=== PATIENT | male | born 1990 | race Caucasian/White ===

== ENCOUNTER 2018-11-05 16:25 | Emergency (ER) | payer SELFPAY ==
[~2018-11-05] VITALS: Ht 177.8 cm; Wt 83.9 kg
[2018-11-05] MEDS ORDERED: PROPOFOL 10 MG/ML (20ML) VIAL. IV ONE (16:45)
[2018-11-05] MEDS ORDERED: IV NORMAL SALINE 1000ML BAG 1,000 ML IV ONE (16:45)
[2018-11-05] MEDS ORDERED: fentaNYL PF VIAL 100 MCG/2 ML VIAL IV ONE (16:45)
[2018-11-05] MEDS ORDERED: ONDANSETRON PF 4 MG/2 ML VIAL. IV ONE (16:45)
--- NOTE | 2018-11-05 16:45 | PHYS DOC ---
Adult General Chief Complaint Chief Complaint: SHOULDER INJURY HPI HPI Patient is a 28 year old male who presents with was at work and states that he pulled a piece of plywood up over his shoulder when he felt a pop in his right shoulder. Patient now has lack of range of motion in the shoulder and in extreme pain. Patient rates his pain a 10 out of 10. Patient states the pain is mechanical nauseated and slightly lightheaded. Patient last ate at 10 AM this morning. (JOE PARK APRN) Review of Systems Review of Systems Constitutional: Denies fever or chills [] Respiratory: Denies cough or shortness of breath [] Musculoskeletal: Right shoulder pain. Denies back pain or joint pain [] Integument: Denies rash or skin lesions [] Neurologic: Denies headache, focal weakness or sensory changes [] All other systems were reviewed and found to be within normal limits, except as documented in this note. (JOE PARK APRN) Current Medications Current Medications Current Medications Medications (Trade) Dose Ordered Sig/[facility] Start Time Stop Time Status Last Admin Dose Admin Fentanyl Citrate (Fentanyl 2ml Vial) 50 mcg 1X ONCE 11/05/18 16:45 11/05/18 16:49 DC 11/05/18 17:13 50 MCG Ondansetron HCl (Zofran) 4 mg 1X ONCE 11/05/18 16:45 11/05/18 16:49 DC 11/05/18 17:03 4 MG Propofol (Diprivan) 200 mg 1X ONCE 11/05/18 16:45 11/05/18 16:49 DC 11/05/18 17:03 200 MG Sodium Chloride 1,000 ml @ 1,000 mls/hr 1X ONCE 11/05/18 16:45 11/05/18 17:44 DC 11/05/18 17:03 1,000 MLS/HR (ILSA SCHROEDER DO) Allergies Allergies Allergies Coded Allergies Type Severity Reaction Last Updated Verified No Known Drug Allergies 11/05/18 No (ILSA SCHROEDER DO) Physical Exam Physical Exam Constitutional: Well developed, well nourished, no acute distress, non-toxic appearance. [] Skin: Warm, dry, no erythema, no rash. [] Extremities: Right shoulder tenderness, no cyanosis, no clubbing, Right shoulder deformity, Right shoulder ROM not intact, no edema. [] Neurologic: Alert and oriented X 3, normal motor function, normal sensory function, no focal deficits noted. [] Psychologic: Affect normal, judgement normal, mood normal. [] (JOE PARK APRN) Current Patient Data Vital Signs Vital Signs Date Time Temp Pulse Resp B/P (MAP) Pulse Ox O2 Delivery O2 Flow Rate FiO2 11/05/18 17:14 98.6 82 18 163/103 2.0 98.6 66 15 2.0 2.0 2.0 11/05/18 17:13 98 Room Air (ILSA SCHROEDER DO) EKG EKG [] (JOE PARK APRN) Radiology/Procedures Radiology/Procedures [] (JOE PARK APRN) Radiology/Procedures Indication: Right shoulder dislocation. Consent: I have discussed with the patient and/or the patient pharmacy services representative the indication, alternatives, and the possible risks and /or complications of the planned procedure and the anesthesia methods. The patient and/or patient pharmacy services representative appear to understand and agree to proceed. Pre-Sedation Documentation and Exam: See H AND P Airway Assessment: normal. Prior History of Anesthesia Complications: none. ASA Classification: 1 Sedation/ Anesthesia Plan: PROPOFOL Medications Used: see nursing notes. Monitoring and Safety: The patient was placed on a radiographer cardiac catheterization and vital signs, pulse oximetry and level of consciousness were continuously evaluated throughout the procedure. The patient was closely monitored until recovery from the medications was complete and the patient had returned to baseline status. Respiratory therapy was on standby at all times during the procedure. (The following sections must be completed) Post-Sedation Vital Signs: [EDM.VS] Post-Sedation Exam: NO FOCAL NEUROVASCULAR DEFICIT. Patient felt much better. Complications: none. Shoulder dislocation reduction procedure: Right shoulder was reduced by this physician by traction and counter traction method. Patient tolerated procedure well, xray post reduction shown right shoulder joint back to normal anatomy position. NO FOCAL NEUROVASCULAR DEFICIT. PATIENT TOLERATED PROCEDURE WELL. (ILSA SCHROEDER DO) Impressions: [facility] [address] [place] [address] IMAGING REPORT Signed PATIENT: KIMBERLI BRAAJAS ACCOUNT: [id number] : 1990 LOCATION: ER AGE: 28 SEX: M EXAM STATUS: PRE ER ORD. PHYSICIAN: JOE PARK APRN REASON: injury, possible dislocation PROCEDURE: SHOULDER 2+V RIGHT 2 view study of the right shoulder Clinical indications: Injury. Possible dislocation. FINDINGS: There is anterior medial dislocation of the humeral head with respect to the glenoid fossa. No acute fracture is evident. No AC joint separation is seen. IMPRESSION: Glenohumeral joint dislocation. Is Electronically signed by: Devan Fulton MD (11/05/2018 5:12 PM) [id number] DICTATED and SIGNED BY: DEVAN FULTON MD DATE: 11/05/18 7240 [facility] [address] [place], [place] [id number] IMAGING REPORT Signed PATIENT: KIMBERLI BARAJAS ACCOUNT: [id number] : 1990 LOCATION: ER AGE: 28 SEX: M EXAM STATUS: PRE ER ORD. PHYSICIAN: ILSA SCHROEDER DO REASON: POST REDUCTION OF RIGHT SHOULDER DISLOCATION PROCEDURE: SHOULDER 2+V RIGHT SHOULDER 2+V RIGHT History: Post reduction of right shoulder dislocation Comparison: Exam earlier the same day Findings: 2 views of the right shoulder are submitted. There has been interval reduction of previously seen right anterior shoulder dislocation. No convincing acute fracture is identified by radiographs. Impression: 1. No acute fracture is identified of the right shoulder, interval reduction of previously seen right anterior shoulder dislocation. Electronically signed by: Barbara Staples MD (11/05/2018 5:27 PM) [facility] DICTATED and SIGNED BY: BARBARA STAPLES MD DATE: 11/05/18 1726 (JOE PARK APRN) Course & Med Decision Making Course & Med Decision Making Patient is a 28 year old male who presents with was at work and states that he pulled a piece of plywood up over his shoulder when he felt a pop in his right shoulder. Patient now has lack of range of motion in the shoulder and in extreme pain. Patient rates his pain a 10 out of 10. Patient states the pain is mechanical nauseated and slightly lightheaded. Patient last ate at 10 AM this morning. Patient's right shoulder has deformity that can be seen. The whole right shoulder tender to palpation. Skin is pink warm and dry. Patient states he does have some tingling in that left extremity but no numbness. Patient states that the arm is warm and he does not feel any coolness to the arm. Refill less than 3 seconds. No edema to the extremity. Patient can grabbed my hand and squeeze but not extremely tight due to causing him pain. The right arm is trembling. Patient states the pain is sharp. Alert and oriented. Speaks in Full sentences. Ambulatory with a steady gait. Patient denies driving himself here today. Range of motion in that right shoulder is not intact and can left at less than 45 degree angle only. Xray shows glenohumeral joint dislocation. Dr Schroeder to relocate shoulder. Patient is sedated and Dr. Schroeder relocated the shoulder. Dr. Schroeder states that he spoke to about this patient and to send this patient to Dr. Rodriguez tomorrow. Patient is put in a arm sling. Patient is educated to not drive or use any heavy machinery and don't sign any important documents today and not to go back to work today especially after sedation. Patient is told to take medications as prescribed or needed and relax for rest of the day. POST REDUCTION XRAY SHOWS 1. No acute fracture is identified of the right shoulder, interval reduction of previously seen right anterior shoulder dislocation. (JOE PARK APRN) Dragon Disclaimer Dragon Disclaimer This electronic medical record was generated, in whole or in part, using a voice recognition dictation system. (JOE PARK APRN) Departure Departure Impression: Primary Impression: Shoulder dislocation Disposition: 01 HOME, SELF-CARE Condition: STABLE Referrals: DONAVAN RODRIGUEZ MD Patient Instructions: Sedation or General Anesthesia, Adult, Care After, Shoulder Dislocation Additional Instructions: Call Dr. Rodriguez office tomorrow morning for a follow-up appointment within 1 week. Take medication as prescribed. Do not operate any heavy machinery for the rest the day and did not go back to work. Drink plenty of fluids. Scripts Orphenadrine Citrate (ORPHENADRINE CITRATE) 100 Mg Tablet.er 1 TAB PO BID, #20 TAB 1 Refill Prov: JOE PARK APRN 11/05/18 Hydrocodone/Apap 5-325 (NORCO 5-325 TABLET) 1 Each Tablet 1 TAB PO PRN Q6HRS PRN for PAIN, #10 TAB 0 Refills Prov: JOE PARK APRN 11/05/18 Ondansetron (ONDANSETRON ODT) 4 Mg Tab.rapdis 1 TAB PO PRN Q6-8HRS, #16 TAB Prov: JOE PARK APRN 11/05/18 Problem Qualifiers Primary Impression: Shoulder dislocation Encounter type: initial encounter Laterality: right Qualified Codes: S43.004A - Unspecified dislocation of right shoulder joint, initial encounter JOE PARK APRN Nov 05, 2018 16:45 ILSA SCHROEDER DO Nov 05, 2018 18:32
[2018-11-05 17:14] VITALS: BP 163/103
--- NOTE | 2018-11-05 17:15 | RAD ---
2 view study of the right shoulder Clinical indications: Injury. Possible dislocation. FINDINGS: There is anterior medial dislocation of the humeral head with respect to the glenoid fossa. No acute fracture is evident. No AC joint separation is seen. IMPRESSION: Glenohumeral joint dislocation. Is Electronically signed by: Luis Angel Fulton MD (11/05/2018 5:12 PM) [id number]
[2018-11-05] MEDS ORDERED: HYDR-3164 PO (17:18)
[2018-11-05] MEDS ORDERED: ONDA4TAB12 PO (17:18)
[2018-11-05] MEDS ORDERED: ORPH100T PO (17:18)
--- NOTE | 2018-11-05 17:30 | RAD ---
SHOULDER 2+V RIGHT History: Post reduction of right shoulder dislocation Comparison: Exam earlier the same day Findings: 2 views of the right shoulder are submitted. There has been interval reduction of previously seen right anterior shoulder dislocation. No convincing acute fracture is identified by radiographs. Impression: 1. No acute fracture is identified of the right shoulder, interval reduction of previously seen right anterior shoulder dislocation. Electronically signed by: Trey Gutierrez MD (11/05/2018 5:27 PM) [facility]
[2018-11-05 18:00] VITALS: BP 132/75
--- NOTE | 2018-11-07 06:18 | PHYS DOC ---
MODERATE SEDATION ASSESSMENT RISKS/ALTERNATIVES Risks/Alternatives Risks and alternatives of this type of sedation and procedure discussed with: RISK/ALTERNATIVES: Patient H & P ON CHART H & P H & P on chart and reviewed for co-morbid conditions and appropriate labs. H&P ON CHART: Yes STATUS PREG STATUS ASSESSED: N/A MEDS/ALLERGIES REVIEWED Meds/Allergies Reviewed Medications and Allergies including time and route of recently administered narcotics and sedatives. MEDS/ALLERGIES REVIEWED: Yes ASA RATING ASA RATING: I AIRWAY ASSESSMENT Airway Assessment Airway patency, oral function limitations, presence of caps, crowns, dentures, partials, and ability to extend neck assessed. AIRWAY ASSESSMENT: Yes MALLAMPATI SCORE MALLAMPATI SCORE: I PRE-SEDATION ASSESSMENT PRE-SEDATION ASSESSMENT: Yes ILSA SCHROEDER DO Nov 07, 2018 06:18
== END 2018-11-05 18:30 | disposition home or self-care (01) ==
LOC: ER 16:25
DX: S43.004A Unspecified dislocation of right shoulder joint, initial encounter (principal); R11.0 Nausea; R42 Dizziness and giddiness; X50.9XXA Other and unspecified overexertion or strenuous movements or postures, initial encounter; Y93.89 Activity, other specified; Y92.69 Other specified industrial and construction area as the place of occurrence of the external cause; Y99.0 Civilian activity done for income or pay
CPT/HCPCS: 23650; 73030; 96361; 96374; 96375; 99285; J2405; J2704; J3010; J7030